=== PATIENT | female | born 1980 | race Asian ===

== ENCOUNTER 2018-07-18 19:22 | Emergency (ER) | payer BC ==
--- NOTE | 2018-07-18 19:51 | EDM.PDOC ---
ED HPI GENERAL MEDICAL PROBLEM - General Chief Complaint: Upper Extremity Injury/Pain Stated Complaint: LEFT WRIST HURTS THINKS ITS SPRAINED Time Seen by Provider: 07/18/18 19:36 Source of Information: Reports: Patient History Limitations: Reports: No Limitations - History of Present Illness INITIAL COMMENTS - FREE TEXT/NARRATIVE: HISTORY AND PHYSICAL: History of present illness: Patient is a 37-year-old female who presents to the emergency room today with complaints of left wrist pain. She states she was pulling a pallet of water that was very heavy when she felt pain to the ulnar surface of her left wrist. Since that time she has tried to rest it which has not provided her any discomfort. She denies any numbness or tingling to the affected extremity. Denies any difficulty with range of motion, although this does cause increased pain. Review of systems: As per history of present illness and below otherwise all systems reviewed and negative. Past medical history: As per history of present illness and as reviewed below otherwise noncontributory. Surgical history: As per history of present illness and as reviewed below otherwise noncontributory. Social history: No reported history of drug or alcohol abuse. Family history: As per history of present illness and as reviewed below otherwise noncontributory. Physical exam: General: Well-developed and well-nourished 37-year-old -[place] female. Alert and oriented. Nontoxic appearing and in no acute distress. HEENT: Atraumatic, normocephalic, pupils equal and reactive bilaterally, negative for conjunctival pallor or scleral icterus, mucous membranes moist, throat clear, neck supple, nontender, trachea midline. No drooling or trismus noted. No meningeal signs Lungs: Clear to auscultation, breath sounds equal bilaterally, chest nontender. Heart: S1S2, regular rate and rhythm without overt murmur Abdomen: Soft, nondistended, nontender. Negative for masses or hepatosplenomegaly. Negative for costovertebral tenderness. Pelvis: Stable nontender. Genitourinary: Deferred. Rectal: Deferred. Skin: Intact, warm, dry. No lesions or rashes noted. Extremities: Moves all extremities per self, although flexion and extension of the left wrist does cause pain. Strong radial pulse. Capillary refill less than 3 seconds. +CMS. She is negative for cords or calf pain. Neurovascular unremarkable. Neuro: Awake, alert, oriented. Cranial nerves II through XII unremarkable. Cerebellum unremarkable. Motor and sensory unremarkable throughout. Exam nonfocal. Notes: X-ray is within normal limits. Patient placed in a cockup wrist splint. Supportive care measures were reviewed and discussed. Patient voices understanding and is agreeable to plan of care. Denies any further questions or concerns at this time. Diagnostics: X-ray Therapeutics: Toradol, wrist brace Prescription: Tramadol Impression: Left wrist injury Plan: 1. Rest, ice, elevate the affected extremity. 2. Tylenol and/or ibuprofen as needed for pain management. Tramadol for moderate to severe pain, this medication may cause sedation. Use with caution. 3. Please follow-up with her primary care provider or the orthopedic provider next week. Return to the ED as needed and as discussed. Definitive disposition and diagnosis as appropriate pending reevaluation and review of above. Onset: Today Duration: Hour(s): Location: Reports: Upper Extremity, Left Left Wrist Pain Score (Numeric/FACES): 7 - Related Data Allergies Allergy/AdvReac Type Severity Reaction Status Date / Time No Known Allergies Allergy Verified 07/18/18 19:48 Home Meds: Home Meds traMADol [Ultram] 50 mg PO Q4H PRN #10 tab 07/18/18 [Rx] Past Medical History - Past Health History Medical/Surgical History: Denies Medical/Surgical History Social & Family History - Family History Family Medical History: Noncontributory - Tobacco Use Smoking Status *Q: Never Smoker - Caffeine Use Caffeine Use: Reports: None - Recreational Drug Use Recreational Drug Use: No Review of Systems - Review of Systems Review Of Systems: ROS reveals no pertinent complaints other than HPI. ED EXAM, GENERAL - Physical Exam Exam: See Below (See dictation) Course - Vital Signs Last Recorded V/S: Last Vital Signs Temp 97.0 F 07/18/18 19:36 Pulse 91 07/18/18 19:36 Resp 16 07/18/18 19:36 BP 119/95 H 07/18/18 19:36 Pulse Ox 100 07/18/18 19:36 - Orders/Labs/Meds Orders: Active Orders 24 hr Category Date Time Status Wrist 2V Lt [CR] Stat Exams 07/18/18 19:37 Ordered DME for Discharge [COMM] Stat Oth 07/18/18 20:43 Ordered Meds: Medications Discontinued Medications Generic Name Dose Route Start Last Admin Trade Name Freq PRN Reason Stop Dose Admin Ketorolac Tromethamine 60 mg 07/18/18 20:03 07/18/18 20:18 Toradol IM 07/18/18 20:04 60 mg ONETIME ONE Administration Departure - Departure Time of Disposition: 20:46 Disposition: Home, Self-Care 01 Clinical Impression: Left wrist injury Qualifiers: Encounter type: initial encounter Qualified Code(s): S69.92XA - Unspecified injury of left wrist, hand and finger(s), initial encounter - Discharge Information Prescriptions: traMADol [Ultram] 50 mg PO Q4H PRN #10 tab PRN Reason: Pain Instructions: Wrist Sprain, Adult Referrals: PCP,None [Primary Care Provider] - Forms: ED Department Discharge Additional Instructions: The following information is given to patients seen in the emergency department who are being discharged to home. This information is to outline your options for follow-up care. We provide all patients seen in our emergency department with a follow-up referral. The need for follow-up, as well as the timing and circumstances, are variable depending upon the specifics of your emergency department visit. If you don't have a primary care physician on staff, we will provide you with a referral. We always advise you to contact your personal physician following an emergency department visit to inform them of the circumstance of the visit and for follow-up with them and/or the need for any referrals to a consulting specialist. The emergency department will also refer you to a specialist when appropriate. This referral assures that you have the opportunity for follow-up care with a specialist. All of these measure are taken in an effort to provide you with optimal care, which includes your follow-up. Under all circumstances we always encourage you to contact your private physician who remains a resource for coordinating your care. When calling for follow-up care, please make the office aware that this follow-up is from your recent emergency room visit. If for any reason you are refused follow-up, please contact the [facility] Emergency Department at and asked to speak to the emergency department charge nurse. [facility] [address] [place] [id number] [facility] [address], [address] [place] [address] 1. Rest, ice, elevate the affected extremity. 2. Tylenol and/or ibuprofen as needed for pain management. Tramadol for moderate to severe pain, this medication may cause sedation. Use with caution. 3. Please follow-up with her primary care provider or the orthopedic provider next week. Return to the ED as needed and as discussed. - My Orders Last 24 Hours: My Active Orders 07/18/18 19:37 Wrist 2V Lt [CR] Stat 07/18/18 20:43 DME for Discharge [COMM] Stat - Assessment/Plan Last 24 Hours: My Active Orders 07/18/18 19:37 Wrist 2V Lt [CR] Stat 07/18/18 20:43 DME for Discharge [COMM] Stat
[2018-07-18] MEDS ORDERED: Ketorolac 60 MG/2 ML SDV IM ONE (20:03)
--- NOTE | 2018-07-21 10:41 | CR ---
EXAM DATE: 07/18/18 PATIENT'S AGE: 37 Patient: SHERRY BYNUM Facility: [place], [place] Site . Site : 1980 Study: XRay Extremity Left wrist [id number]/21/2018 8:39:00 PM Ordering Physician: Doctor Shi Final Report: INDICATION: pain LEFT WRIST No fracture, dislocation, or destructive lesion of bone is seen. No significant arthritic changes or soft tissue abnormalities are identified. IMPRESSION: Negative left wrist radiographs. TOAN WAYNE MD [facility] Dictated by: Prme Wayne MD @ 07/18/2018 20:43:44 (Electronic Signature) Report Signed by Proxy. [facility]
== END 2018-07-18 20:56 | disposition home or self-care (01) ==
LOC: MW.ED 19:22
DX: S69.92XA Unspecified injury of left wrist, hand and finger(s), initial encounter (principal); X50.9XXA Other and unspecified overexertion or strenuous movements or postures, initial encounter; Y99.0 Civilian activity done for income or pay
CPT/HCPCS: 73100; 96372; 99283; J1885